=== PATIENT | female | born 1995 | race Caucasian/White ===

== ENCOUNTER 2017-09-21 23:05 | Emergency (ER) | payer MEDICAID ==
[~2017-09-21] VITALS: Ht 170.2 cm; Wt 55.3 kg
[2017-09-22] MEDS ORDERED: ONDANSETRON 4MG ODT PO STA (01:46)
[2017-09-22] MEDS ORDERED: ACETAMINOPHEN 325MG TABLET PO STA (01:46)
[2017-09-22] MEDS ORDERED: DIPHENHYDRAMINE 50MG CAPSULE PO ONE (02:00)
[2017-09-22 02:24] LABS: BASOPHILS % 1.1 % (0.0-2.0); EOSINOPHILS % 1.3 % (0.0-5.0); LYMPHOCYTES % 29.2 % (20.0-50.0); MEAN CORPUSCULAR HEMOGLOBIN 25.6 pg (28.0-32.0); MEAN CORPUSCULAR VOLUME 78.8 fL (81.0-99.0); MEAN PLATELET VOLUME 8.9 fl (7.4-10.4); MONOCYTES % 12.4 % (2.0-8.0); PLATELET 316 x1000/uL (130-400); RED BLOOD CELL COUNT 4.69 mill/uL (4.2-5.4); RED CELL DISTRIBUTION WIDTH 16.1 % (11.6-14.6)
[2017-09-22 02:30] LABS: CHLORIDE 104 mEq/L (98-107)
[2017-09-22 02:34] LABS: PROTHROMBIN TIME 10.5 sec (9.4-11.6)
[2017-09-22 02:35] LABS: HCG SCREEN NEGATIVE
[2017-09-22 05:11] VITALS: BP 103/69
== END 2017-09-22 05:14 | disposition home or self-care (01) ==
LOC: ER 23:05
DX: S60.562A Insect bite (nonvenomous) of left hand, initial encounter (principal); S40.862A Insect bite (nonvenomous) of left upper arm, initial encounter; R10.11 Right upper quadrant pain; F12.10 Cannabis abuse, uncomplicated; Z90.49 Acquired absence of other specified parts of digestive tract; W57.XXXA Bitten or stung by nonvenomous insect and other nonvenomous arthropods, initial encounter; Y93.89 Activity, other specified; Y92.89 Other specified places as the place of occurrence of the external cause
CPT/HCPCS: 36415; 76705; 80053; 83690; 84703; 85025; 85610; 99285; Q0162; Q0163